=== PATIENT | male | born 1975 | race Caucasian/White ===

== ENCOUNTER → 2016-06-20 | Outpatient (CLI) | payer OTHER ==
[~2016-06-20] MED LIST: LEVO25TA PO
[2016-06-20 14:23] LABS: THYROID STIMULATING HORMONE 2.37 uIu/ml (0.300-4.500); URIC ACID 6.5 mg/dl (2.6-7.2)
== END | disposition home or self-care (01) ==
LOC: C.LABBC 11:38
PROVIDERS: ATTEND Internal Medicine Geriatric Medicine
DX: M19.90 Unspecified osteoarthritis, unspecified site (principal); E03.9 Hypothyroidism, unspecified

== ENCOUNTER → 2017-04-01 | Outpatient (CLI) | payer OTHER ==
[2017-04-01 17:10] LABS: BASO % 0.8 %; BASO ABS # 0.06 K/uL (0-0.2); COMPLETE YES; EOS % 8.1 %; HEMATOCRIT 46.3 % (42-52); IG% 0.3 %; LYMPH % 28.8 %; LYMPH ABS # 2.29 K/uL (1.2-3.4); MEAN CELL VOLUME 84.6 fL (80-100); MEAN CORPUSCULAR HGB CONC 35.4 g/dl (32-36); MEAN PLATELET VOLUME 10.1 fL (7.4-10.4); MONO % 7.4 %; NEUT % 54.6 %; PLATELET COUNT 147 K/uL (130-400); RED BLOOD COUNT 5.47 M/uL (4.7-6.1); WHITE BLOOD COUNT 7.94 K/uL (4.8-10.8)
[2017-04-01 17:23] LABS: BLOOD UREA NITROGEN 16 mg/dl (7-18); BUN/CREATININE RATIO 13.1 (10-20); CALCIUM 9.1 mg/dl (8.5-10.1); CARBON DIOXIDE 30 mmol/L (21-32); CHLORIDE 102 mmol/L (98-107); CHOLESTEROL 264 mg/dl (0-200); CREATININE 1.21 mg/dl (0.60-1.40); GLUCOSE 94 mg/dl (70-99); POTASSIUM 3.5 mmol/L (3.5-5.1); SODIUM 138 mmol/L (136-145)
[2017-04-01 17:26] LABS: CHOLESTEROL/HDL RATIO 5.3; HDL CHOLESTEROL 50 mg/dl; TRIGLYCERIDES 221 mg/dl (0-150); VERY LOW DENSITY LIPOPROT CALC 44 mg/dl
== END | disposition home or self-care (01) ==
LOC: C.LABBC 14:13
PROVIDERS: ATTEND Physician Assistant Medical
DX: Z00.00 Encounter for general adult medical examination without abnormal findings (principal); I10 Essential (primary) hypertension

== ENCOUNTER → 2017-07-23 | Outpatient (CLI) | payer OTHER | END | disposition home or self-care (01) | LOC: C.PATHSPEC 11:03 | PROVIDERS: ATTEND Plastic Surgery | DX: L82.0 Inflamed seborrheic keratosis (principal) ==

== ENCOUNTER 2017-11-11 22:02 | Emergency (ER) | payer OTHER ==
[~2017-11-11] VITALS: Ht 182.9 cm; Wt 77.4 kg
[2017-11-11 22:04] VITALS: Ht 182.9 cm; Wt 77.4 kg
[2017-11-11] MEDS ORDERED: LORAZEPAM 2 MG/ML 1 ML VIAL IV STA (22:17)
[2017-11-11] MEDS ORDERED: LIDOCAINE HCL 2% 2 ML VIAL (20MG/ML) ONE ×2 (22:59)
[2017-11-11] MEDS ORDERED: PROPOFOL IV EMULSION 10 MG/ML 20 ML VIAL ONE (22:59)
[2017-11-11] MEDS ORDERED: SUCCINYLCHOLINE CHLORIDE 20 MG/ML 10 ML VIAL IV ONE (22:59)
[2017-11-11] MEDS ORDERED: EpHEDrine SULFATE INJ 50 MG/ML AMP ONE (23:04)
[2017-11-11] MEDS ORDERED: PROMETHAZINE HCL INJ 12.5 MG in SODIUM CHLORIDE 0.9% 50ML 50 ML IV PRN (23:15)
[2017-11-11] MEDS ORDERED: PHENYLEPHRINE 100MCG/ML 5ML SYR IV PRN (23:15)
[2017-11-11] MEDS ORDERED: ONDANSETRON INJ 2 MG/ML 2 ML VIAL IV PRN (23:15)
[2017-11-11] MEDS ORDERED: ATROPINE SULFATE 0.1 MG/ML 5ML SYR IV PRN (23:15)
[2017-11-11] MEDS ORDERED: FENTANYL CITRATE INJ 50 MCG/1 ML 2 ML VIAL IV PRN (23:15)
[2017-11-11] MEDS ORDERED: EpHEDrine SULFATE INJ 50 MG/ML AMP IV PRN (23:15)
--- NOTE | 2017-11-11 23:16 | Endo History and Physical ---
History & Physical Date of Service: Nov 11, 2017. Chief Complaint: Referring Physician: History of Present Illness patient with food bolus esophageal obstruction Past Medical History Reflux, Thyroid Disease Past Surgical History Hx Cardiac Surgery: No Hx Internal Defibrillator: No Hx Pacemaker: No Hx Abdominal Surgery: No Hx Cancer Surgery: No Hx Thoracic Surgery: No Hx Orthopedic: No Hx Urinary Tract Surgery: No Social History Smoking Status: Never Smoker Hx Substance Use: No Hx Alcohol Use: Yes (OCCASSIONALLY) Allergies Coded Allergies: No Known Allergies (Unverified , 11/11/17) Current Medications Reported Home Medications Medications Dose Route/Sig Max Daily Dose Days Date Category Synthroid (Levothyroxine Sodium) 25 Mcg Tab 25 Mcg PO QAM 05/14/15 Reported Vital Signs Weight (Kilograms): 77.400 Height (Feet): 6 Height (Inches): 0 Date Time Temp Pulse Resp B/P (MAP) Pulse Ox O2 Delivery O2 Flow Rate FiO2 11/11/17 22:20 95 Room Air 11/11/17 22:07 97 Room Air 11/11/17 22:04 36.7 109 18 164/83 97 Room Air Physical Exam General Appearance: + mild distress (salivating) Respiratory/Chest: Auscultation: breath sounds normal Cardiovascular: Heart Auscultation: RRR, tachycardia Abdomen: Inspection & Palpation: soft Liver: non-tender Assessment and Plan stable for emergent EGD
[2017-11-11] MEDS ORDERED: LSN/10125 PO (23:19)
[2017-11-11 23:23] VITALS: O2SAT 96
[2017-11-12] MEDS ORDERED: PROPOFOL IV EMULSION 10 MG/ML 20 ML VIAL ONE (00:09)
--- NOTE | 2017-11-12 00:15 | GI REPORT ---
Patient Name: Macho Oliva Procedure Date: 11/11/2017 11:36 PM Date of : 1975 Admit Type: Emergency Department Age: 41 Gender: Male Attending MD: Dexter Lal MD Procedure: Upper GI endoscopy Providers: Dexter Lal MD Referring MD: Macho Ross Indications: Foreign body in the esophagus Medicines: See the Anesthesia note for documentation of the administered medications Complications: No immediate complications. Estimated Blood Loss: Estimated blood loss: none. Procedure: Pre-Anesthesia Assessment: - Prior to the procedure, a History and Physical was performed, and patient medications, allergies and sensitivities were reviewed. The patient's tolerance of previous anesthesia was reviewed. - The risks and benefits of the procedure and the sedation options and risks were discussed with the patient. All questions were answered and informed consent was obtained. - Patient identification and proposed procedure were verified prior to the procedure by the physician and the nurse. The procedure was verified in the pre-procedure area. - Pre-procedure physical examination revealed no contraindications to sedation. - After reviewing the risks and benefits, the patient was deemed in satisfactory condition to undergo the procedure. After obtaining informed consent, the endoscope was passed under direct vision. Throughout the procedure, the patient's blood pressure, pulse, and oxygen saturations were monitored continuously. The Scope was introduced through the mouth, and advanced to the second part of duodenum. The upper GI endoscopy was accomplished without difficulty. The patient tolerated the procedure well. Findings: Food was found in the lower third of the esophagus. Removal of food was accomplished using a Kenny net per os. No biopsies or other specimens were collected for this exam. Estimated blood loss: none. The stomach was normal. The examined duodenum was normal. The cardia and gastric fundus were normal on retroflexion. Impression: - Food in the lower third of the esophagus. No specimens collected. Removal was successful with Kenny net per os. - Esophagus with significant inflammation. - Normal stomach. - Normal examined duodenum. Recommendation: - Use a proton pump inhibitor PO daily indefinitely. - Repeat the upper endoscopy in 2 weeks to check healing. - Discharge patient to home. - Soft diet for 2 days. Dexter Lla M.D. Dexter Lal MD 11/12/2017 12:15:27 AM This report has been signed electronically. Note Initiated On: 11/11/2017 11:36 PM Number of Addenda: 0 I attest to the content of the Intraoperative Record and orders documented therein, exceptions below {[id number]}
--- NOTE | 2017-11-12 00:23 | Discharge Instructions ---
Endoscopy Patient Instructions Date / Procedure(s) Performed Nov 12, 2017. EGD Allergy Information Coded Allergies: No Known Allergies (Unverified , 11/11/17) Discharge Date / Findings Nov 12, 2017. esophageal food obstruction- removed Provider Instructions Activity Restrictions - No exercising or heavy lifting for 24 hours. - Do not drink alcohol the day of the procedure. - Do not drive a car or operate machinery until the day after the procedure. - Do not make any important decisions or sign important papers in 24 hours after the procedure. Following Day: - Return to full activity which may include returning to work/school. Diet Soft diet for 2 days than regular diet but chew food well. Treatment For Common After Affects For mild abdominal pain, bloating, or excessive gas: - Rest - Eat lightly - Lie on right side Follow-Up Information Follow-up upper endoscopy will be scheduled in 2 weeks. Anesthesia Information What You Should Know You have had a procedure that required some medicine to reduce anxiety and discomfort. This treatment is called moderate sedation. After receiving the treatment, you may be sleepy, but you will be able to breathe on your own. The effects of the treatment may last for several hours. Follow these instructions along with Activity/Diet recommendations noted above: * Do NOT do anything where dizziness or clumsiness would be dangerous. * Rest quietly at home today, then you can be up and about tomorrow. * Have a responsible person stay with you the rest of today. * You may have had an I.V. today. If so, you may take the dressing off later today. Recommendations Call your doctor if: * Trouble breathing * Continuous vomiting for more than 24 hours * Temperature above 101 degrees * Severe abdominal pain or bloating * Pain not relieved by pain medicine ordered * There is increased drainage or redness from any incision * A large amount of rectal bleeding greater than 2-3 tablespoons. (If you had a polyp/s removed or have hemorrhoids, a small amount of blood - from the rectum is to be expected.) * You have any unanswered questions or concerns. IN THE EVENT OF A SERIOUS EMERGENCY, GO TO THE NEAREST EMERGENCY ROOM Your discharge instructions were prepared by provider Dexter Lal. Patient Instructions Signature Page Macho Oliva Patient (or Guardian) Signature/Date: I have read and understand the instructions given to me by my caregivers. Caregiver/RN/Doctor Signature/Date: The above-named patient and/or guardian has received patient instructions on this date. + Original Patient Signature Page (only) stays with chart. Please make copy for patient.
--- NOTE | 2017-11-12 00:52 | Anesthesiology Progress Note ---
Anesthesia Post Op Note Date & Time Nov 12, 2017 at 00:52 Vital Signs Pain Intensity: 5 Vital Signs Past 12 Hours Date Time Temp Pulse Resp B/P (MAP) Pulse Ox O2 Delivery O2 Flow Rate FiO2 11/12/17 00:45 36.6 83 20 133/79 (97) 98 Room Air 11/12/17 00:40 88 18 125/82 99 Room Air 11/12/17 00:30 84 22 123/85 100 Oxymask 2 11/12/17 00:19 36.3 88 18 131/81 99 Oxymask 2 11/11/17 23:23 88 16 134/96 96 Room Air 11/11/17 22:20 95 Room Air 11/11/17 22:07 97 Room Air 11/11/17 22:04 36.7 109 18 164/83 97 Room Air Notes Mental Status: alert / awake / arousable, participated in evaluation Pt Amnestic to Procedure: Yes Nausea / Vomiting: adequately controlled Pain: adequately controlled Airway Patency, RR, SpO2: stable & adequate BP & HR: stable & adequate Hydration State: stable & adequate Anesthetic Complications: no major complications apparent
[2017-11-12 01:12] VITALS: BP 117/86; PULSE 86; O2SAT 98
--- NOTE | 2017-11-12 04:28 | EMERGENCY ROOM VISIT NOTE ---
History Report prepared by Alfred: Kim Gómez Under the Supervision of: Dr. Macho Ross M.D. First contact with patient: 22:07 Chief Complaint: FOOD BOLUS Stated Complaint: FOOD STUCK IN THROAT Nursing Triage Summary: Patient ran into triage, states "I can't breathe. I have steak stuck in my throat. I have thrown up twice. I have had this happen to me before. They had to put something down my throat to pull the food out. What will happen if I stop breathing?" Patient hiccupping and burping in triage. Patient unable to sit still. History of Present Illness The patient is a 41 year old male who presents to the Emergency Room with complaints of an episode of food bolus that occurred just prior to arrival. The patient states that he was eating steak for dinner when he suddenly felt food get stuck. Per significant other, the patient suddenly stopped breathing and when she tried to remove the food, only water came out. The patient states he currently feels like he cannot swallow and he has sharp pain in his upper chest. He denies feeling nauseous. The patient notes he had a similar episode 2 years ago and had to have a scope put down his throat. He reports he has experienced progressive difficulty swallowing over the past 6 months, especially in the morning, and his significant other adds that the patient has been complaining of trouble swallowing for the last 8 weeks. The patient notes his symptoms feel like GERD. He reports he feels like he has to force food down daily, and he complains of mucus build up. The significant other also notes the patient is "a terrible sleeper" and has breathing problems at night. Per significant other, the patient is not on any acid-suppressing medication, but he is on a blood pressure medication. Pt denies LOC, headache, fevers, chills, diaphoresis, visual changes, neck pain, abdominal pain, back pain, melena, hematochezia, urinary symptoms, numbness, weakness, lymphadenopathy, rash, or other complaints. Source of History: patient, spouse/significant other Onset: just prior to arrival Position: other (esophagus) Quality: other (food bolus) Timing: other (episode) Associated Symptoms: + chest pain, No nausea Note: Additional symptoms: difficulty swallowing, mucus buildup. Per , the patient has difficulty breathing at night. Review of Systems See HPI for pertinent positives and negatives. A total of ten systems were reviewed and were otherwise negative. Past Medical & Surgical Medical Problems: (1) GERD (gastroesophageal reflux disease) (2) Hypothyroidism, unspecified Family History No pertinent family history Social History Smoking Status: Never Smoker Alcohol Use: none Drug Use: none Marital Status: single Occupation Status: employed Current/Historical Medications Scheduled Hctz/Lisinopril (Lisinopril/Hctz 10/12.5 Mg), 1 TAB PO DAILY Levothyroxine Sodium (Synthroid), 25 MCG PO QAM Allergies Coded Allergies: No Known Allergies (Unverified , 11/11/17) Physical Exam Vital Signs Date Time Temp Pulse Resp B/P (MAP) Pulse Ox O2 Delivery O2 Flow Rate FiO2 11/12/17 01:12 86 18 117/86 (96) 98 Room Air 11/12/17 01:05 81 18 132/85 (101) 98 Room Air 11/12/17 00:55 77 18 127/83 (98) 98 Room Air 11/12/17 00:45 36.6 83 20 133/79 (97) 98 Room Air 11/12/17 00:40 88 18 125/82 99 Room Air 11/12/17 00:30 84 22 123/85 100 Oxymask 2 11/12/17 00:19 36.3 88 18 131/81 99 Oxymask 2 11/11/17 23:23 88 16 134/96 96 Room Air 11/11/17 22:20 95 Room Air 11/11/17 22:07 97 Room Air 11/11/17 22:04 36.7 109 18 164/83 97 Room Air Physical Exam GENERAL: Awake, alert, well-appearing, in no distress HENT: Normocephalic, atraumatic. Oropharynx unremarkable. EYES: Normal conjunctiva. Sclera non-icteric. NECK: Supple. No nuchal rigidity. FROM. No masses. RESPIRATORY: Clear to auscultation. No wheezes. No rales. Normal respiratory effort. CARDIAC: Normal rate. Normal rhythm. No murmurs. No rubs. Extremities warm and well perfused. Pulses equal. No JVD. GI: Soft. Significant abdominal distention. Positive fluid wave. No tenderness to palpation. No rebound or guarding. No masses. RECTAL: Deferred. MUSCULOSKELETAL: Atraumatic. Chest examination reveals no tenderness. The back is symmetrical on inspection without obvious abnormality. There is no CVA tenderness to palpation. No joint edema. LOWER EXTREMITIES: Calves are equal size bilaterally and non-tender. +1 pedal edema. No discoloration. NEURO: Normal sensorium. No sensory or motor deficits noted. SKIN: No rash or jaundice noted. Medical Decision & Procedures Medications Administered Medications (Trade) Dose Ordered Sig/Kush Route Start Time Stop Time Status Last Admin Dose Admin Lorazepam (Ativan Inj) 1 mg NOW STAT IV 11/11/17 22:17 11/11/17 22:18 DC 11/11/17 22:29 1 MG ED Course 2215: The patient was evaluated in room B2. A complete history and physical exam was performed. 2217: Ordered Lorazepam 1 mg IV. 222: Discussed the patient's case with Dr. Lal. The patient will be evaluated for further treatment and disposition. 2307: I checked on the patient and updated him on his results. The patient is stable and waiting for CT results. 2335: The patient was moved to the GI suite. The patient is having an endoscopy. Medical Decision The patient was evaluated. He was uncomfortable. He was not tolerating his own saliva. Differential includes esophageal food impaction, esophageal stricture, esophageal spasm, aspiration, esophageal rupture, as well as others. The patient's history and physical point towards esophageal food impaction. He was given a dose of IV Ativan which helped him relax however he still had his symptoms. I did consult with gastroenterology. Given the history they felt endoscopy emergently was necessary. The patient was taken for endoscopy for further management. The patient had endoscopy performed. He was found to have an esophageal food impaction. The patient was discharged by endoscopy. Medication Reconcilliation Current Medication List: was personally reviewed by me Blood Pressure Screening Patient's blood pressure: Normal blood pressure Blood pressure disposition: Did not require urgent referral Consults Time Called: 2227 Consulting Physician: Dr. Lukasz ANTOINE [facility] Returned Call: [phone] I discussed the patient's case with Dr. Lal. The patient will be evaluated for further treatment and disposition. Impression Primary Impression: Esophageal obstruction due to food impaction Scribe Attestation The scribe's documentation has been prepared under my direction and personally reviewed by me in its entirety. I confirm that the note above accurately reflects all work, treatment, procedures, and medical decision making performed by me. Departure Information Dispostion Other (Admitted to GI) Referrals No Doctor, Assigned (PCP) Patient Instructions My [facility]
== END 2017-11-11 23:32 | disposition home or self-care (01) ==
LOC: C.EDB 22:03
DX: T18.128A Food in esophagus causing other injury, initial encounter (principal); I10 Essential (primary) hypertension; E03.9 Hypothyroidism, unspecified; Z79.899 Other long term (current) drug therapy; X58.XXXA Exposure to other specified factors, initial encounter